=== PATIENT | male | born 1940 | race Caucasian/White ===

== ENCOUNTER 2016-09-02 12:25 | Outpatient (RCR) | payer MEDICARE, OTHER ==
[~2016-09-02 12:25] MED LIST: ACCUPRIL10 MG PO; ACCUPRIL20 MG PO; ACCUPRIL20TAB PO; ASPIRIN E.C. 8181 MG PO; ATENOLOL50 MG PO; BETAPACE 80MG80 MG PO; CO Q-1010 M1 PO; COUMADIN; COUMADIN 22.5 MG/TAB PO; FIBER CHOICE1 CTB PO; HCTZ 25MG25 MG PO; HUMALOG100 U/ML SC; IMDUR 30MG30 MG/TAB PO; LANTUS100 U/ML SQ; LASIX 20MG TABL20 MG PO; MASON NATURAL2000 IU PO; MOTRIN 200200 MG/TAB PO; MULTIPLE VITAMI1 TAB PO; MVI; NEURONTIN100 MG/CAP PO; NITROSTAT0.4 MG/TAB SL; NORCO 325 MG-101 TAB PO; NORCO 325 MG-51 TAB PO; OPTIVE EYE OP; PRAVACHOL 40MG40 MG PO; PRAVACHOL80 MG PO; PRILOSEC 20MG20 MG PO; SUSTANE EYE DROPS OP; SYSTANE LUBRICAN5 ML OP; TOPROL XL 50MG50 MG PO; TYLENOL 325MG325 MG PO; VICODIN 5/5001 UDTAB PO; VITAMIN D1000 IU PO; XARELTO20 MG PO
== END 2016-12-01 | disposition home or self-care (01) ==
LOC: WSST
DX: G20 Parkinson's disease (principal)
CPT/HCPCS: G8996-GN; G8997-GN

== ENCOUNTER → 2016-10-08 | Outpatient (CLI) | payer MEDICARE, OTHER | LOC: COL.RAD 09:23 | DX: R13.13 Dysphagia, pharyngeal phase (principal) | CPT/HCPCS: G8996-GN; G8997-GN; G8998-GN ==

== ENCOUNTER → 2017-02-12 | Outpatient (RCR) | payer MEDICARE, OTHER | END | disposition still patient (30) | LOC: WSPT | DX: M75.01 Adhesive capsulitis of right shoulder (principal); M54.5 Low back pain; G89.29 Other chronic pain | CPT/HCPCS: G8978-GP; G8979-GP ==

== ENCOUNTER 2017-05-14 10:00 | Outpatient (RCR) | payer MEDICARE, OTHER | END 2017-05-15 16:43 | LOC: WSPT 10:00 | DX: M75.01 Adhesive capsulitis of right shoulder (principal); G89.29 Other chronic pain | CPT/HCPCS: G8978-GP; G8979-GP; G8980-GP ==

== ENCOUNTER 2017-12-11 08:00 | Outpatient (RCR) | payer MEDICARE, OTHER | END 2018-01-04 09:53 | disposition home or self-care (01) | LOC: WSPT 08:00 | DX: M54.5 Low back pain (principal); M25.561 Pain in right knee; M25.562 Pain in left knee; Z90.49 Acquired absence of other specified parts of digestive tract; Z96.651 Presence of right artificial knee joint; Z95.0 Presence of cardiac pacemaker; Z98.890 Other specified postprocedural states; Z91.81 History of falling | CPT/HCPCS: G8978-GP; G8979-GP; G8980-GP ==

== ENCOUNTER 2019-07-27 12:47 | Observation (INO) | payer MEDICARE, OTHER ==
[2019-07-27] VITALS (31 sets, daily range): BP systolic 103–147; BP diastolic 52–73; PULSE 71–74; TEMP 98.6; O2SAT 91–98
[~2019-07-27] VITALS: Ht 160 cm; Wt 91.0 kg
[2019-07-27 13:10] LABS: BASO % 0.1 % (0.0-2.0); GRAN # 8.9 (1.4-6.5); GRAN % 88.2 % (42.2-75.2); HEMATOCRIT 38.9 % (42.0-52.0); HEMOGLOBIN 12.7 g/dl (13.5-18.0); LYMPH # 0.7 (1.2-3.4); LYMPH % 6.5 % (20.0-51.0); MEAN CELL VOLUME 96 fl (80.0-100.0); MEAN CORPUSCULAR HEMOGLOBIN 31 pg (27.0-31.0); MEAN CORPUSCULAR HGB CONC 33 g/dl (33.0-37.0); MEAN PLATELET VOLUME 9.8 fl (7.4-10.4); MONO # 0.5 (0.1-0.6); MONO % 4.7 % (1.7-9.3); PLATELET COUNT 258 K/mm3 (130-400); RED BLOOD COUNT 4.07 M/mm3 (4.20-5.60)
[2019-07-27 13:15] LABS: INR 3.3 (0.8-3.0); PROTHROMBIN TIME 39.6 SECONDS (9.7-12.8)
[2019-07-27 13:17] LABS: PARTIAL THROMBOPLASTIN TIME 38.2 SECONDS (26.0-37.0)
[2019-07-27 13:21] LABS: ALANINE AMINOTRANSFERASE 15 U/L (21-72); ALBUMIN 3.9 gm/dL (3.5-5.0); ALKALINE PHOSPHATASE 56 U/L (50-136); ANION GAP 13 mmol/L (7-16); AST,SGOT 22 U/L (15-37); BILIRUBIN,TOTAL 0.7 mg/dL (0.0-1.0); BLOOD UREA NITROGEN 47 mg/dL (9-20); CALCIUM 8.9 mg/dL (8.4-10.2); CARBON DIOXIDE 21 mmol/L (22-30); CHLORIDE 104 mmol/L (98-107); LIPASE 30 U/L (23-300); POTASSIUM 5.5 mmol/L (3.4-5.0); SODIUM 137 mmol/L (137-145); TOTAL PROTEIN 6.7 gm/dL (6.4-8.2)
[2019-07-27 13:30] LABS: GLUCOSE 451 mg/dL (74-106)
[2019-07-27 13:32] LABS: TROPONIN-I < 0.012 ng/mL (0.000-0.035)
[2019-07-27 13:59] LABS: COLLECTION METHOD CATHETER
[2019-07-27 14:22] LABS: ARTERIAL BLD GAS O2 SATURATION 94.5 % (92-100); ARTERIAL BLD GAS TCO2 CT 19.2; ARTERIAL BLOOD GAS BASE EXCESS -4.6 (-2-2); ARTERIAL BLOOD GAS HCO3 18.3 meq/L (22-26); ARTERIAL BLOOD GAS PCO2 28.3 mmHg (35-45); ARTERIAL BLOOD GAS PO2 71.6 mmHg (80-100); ARTERIAL BLOOD GAS pH 7.43 (7.35-7.45)
[2019-07-27 14:29] LABS: HYALINE CAST >12 /lpf; MUCOUS Present /lpf; PH 5 (5-8); SQUAMOUS EPITHELIAL None Seen /hpf; URINE APPEARANCE Clear; URINE BACTERIA None Seen /hpf; URINE BILIRUBIN Negative (NEGATIVE); URINE BLOOD Negative (NEGATIVE); URINE COLOR Yellow; URINE GLUCOSE 1+ (NEGATIVE); URINE KETONE Negative (NEGATIVE); URINE LEUKOCYTE ESTERASE Negative (NEGATIVE); URINE NITRATE Negative (NEGATIVE); URINE PROTEIN(semi-quant) Negative (NEGATIVE); URINE RBC 0-2 /hpf; URINE UROBILINOGEN Negative (NEGATIVE)
[2019-07-27] MEDS ORDERED: NORVASC 5MG5 MG/TAB PO (14:30)
[2019-07-27] MEDS ORDERED: NOVOLIN 70100 UNIT/2 (14:32)
[2019-07-27] MEDS ORDERED: SYSTANE 0.4%-0.1 SOL (14:33)
--- NOTE | 2019-07-27 17:18 | NUR ---
REPORT GIVEN TO ANTHONY PEREA ON MEDICAL FLOOR, PATIENT WILL GO TO ROOM 312
[2019-07-27] MEDS ORDERED: LASIX 20MG TABL20 MG PO (20:10)
--- NOTE | 2019-07-27 20:16 | NUR ---
1800: Pt up to room 312 by WC escorted by ANTHONY Navas. Pt assisted to bed. 5 page, allergies, pharmacy, med rec completed. at bedside. Pt A&O, intermittent anger and joking around, not sure of baseline. LS cta, heart RRR, pacer, BS x4, pulses strong bilaterally. Pt denies SOB, chest pain, dizziness, N/V/D. Pt states he has chronic back and neck pain. 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 Pt uses walker at home. 20g RFA IV flushes w/o complication. 184: MRI called for pt to be brought down for procedure. Pt assisted to WC, slightly unsteady on feet, unable to fully stand up, 1-2 assist. Pt has small stage 2 ulcer on left buttock, will cover w/ mepalex this evening. Pt escorted down for procedure. This nurse stayed w/ patient during procedure. Pt tolerated well. Intermittent anger, needing occasional redirection in process of procedure. 1944: Returned from MRI. Pt assisted to bed. Repositioned, pt eating dinner.
--- NOTE | 2019-07-27 20:40 | NUR ---
Resting in bed. Assessment complete. Lungs clear. Heart sounds normal. Bowels active x4. Pulses strong throughout. Bilateral lower leg edema +1. Rating pain in lower back 8/10. Provided with PRN norco as ordered. Stage 2 pressure ulcer to coccyx-mepalex applied. Left elbow bruise present. Denies other needs at this time. Call light in reach. Will monitor.
--- NOTE | 2019-07-27 23:40 | NUR ---
Resting in bed. Denies needs. Call light in reach.
--- NOTE | 2019-07-28 | NUR ---
Dr. Campuzano added orders for patient to be placed on an insulin drip due to blood sugar 306. Patient was given 10 units sliding scale earlier in evening. Blood sugar recheck 202. Dr. Campuzano informed patient would have to be transferred to ICU for insulin drip. Orders cancelled at this time.
[2019-07-28 03:12] VITALS: BP 120/51; PULSE 76
--- NOTE | 2019-07-28 04:46 | NUR ---
Patient scrotum red and sore per patient report. Applied barrier cream at this time. Patient reports relief. Denies other needs at this time. Call light in reach.
--- NOTE | 2019-07-28 06:16 | NUR ---
Patient had uneventful night. Intermittent confusion, increased alertness this AM. Denies needs. Used urinal throughout night. Call light in reach.
[2019-07-28 06:25] LABS: BASO % 0.1 % (0.0-2.0); GRAN # 12.4 (1.4-6.5); GRAN % 87.5 % (42.2-75.2); HEMATOCRIT 38.7 % (42.0-52.0); HEMOGLOBIN 12.8 g/dl (13.5-18.0); LYMPH # 0.9 (1.2-3.4); LYMPH % 6.6 % (20.0-51.0); MEAN CELL VOLUME 95 fl (80.0-100.0); MEAN CORPUSCULAR HEMOGLOBIN 31 pg (27.0-31.0); MEAN CORPUSCULAR HGB CONC 33 g/dl (33.0-37.0); MEAN PLATELET VOLUME 10.2 fl (7.4-10.4); MONO # 0.8 (0.1-0.6); MONO % 5.5 % (1.7-9.3); PLATELET COUNT 265 K/mm3 (130-400); RED BLOOD COUNT 4.07 M/mm3 (4.20-5.60)
[2019-07-28 06:32] LABS: INR 3.6 (0.8-3.0); PROTHROMBIN TIME 44.1 SECONDS (9.7-12.8)
[2019-07-28 06:33] LABS: BILIRUBIN,TOTAL 0.7 mg/dL (0.0-1.0); CALCIUM 9.3 mg/dL (8.4-10.2); CHOLESTEROL RISK RATIO 3.8; CREATININE, serum 1.51 (0.66-1.25)
--- NOTE | 2019-07-28 07:12 | NUR ---
Report given to ANTHONY Dennison
--- NOTE | 2019-07-28 09:28 | NUR ---
Initial visit; Apartment Locator spoke with Jonathon's who said their Ground Surveillance Systems Operator and friends have been offering support and that she would tell Jonathon that [employer] Apartment Locator has offered support and to keep Jonathon in her prayers.
[2019-07-28 10:00] VITALS: BP 146/66; PULSE 78; TEMP 97.1
[2019-07-28] MEDS ORDERED: JANTOVEN5 MG PO (10:20)
--- NOTE | 2019-07-28 10:25 | NUR ---
Received report, patient was resting in bed with eyes closed. When going to see patient to bring medications, patient and had several questions regarding medications I was administereing. Did go tell patient what I was administering and he felt that he took more pills than that. 2 of the medications were administered by overnight cashier. Some weren't continued by provider. Spoke with pharmacy and patient regarding this and suggested that patient keep med list out to ask provider about meds. Did explain formulary substituions to patient and , they verbalized understanding. Call light and personal items are within reach.
--- NOTE | 2019-07-28 12:50 | NUR ---
Buyer Agent attended clinical rounds with the team. SW then followed up with patient who will discharge today. Patient lives in [place] with his , Onelia. Patient sees Dr. Cornejo for primary care and obtains medications from [facility]. Patient uses a walker for mobility. Patient states he has DPOA-HC which designates Onelia. Patient will return home upon discharge.
--- NOTE | 2019-07-28 16:00 | NUR ---
Pt IV site D/Zeb, tip intact.
--- NOTE | 2019-07-28 18:49 | NUR ---
Patient discharged home with . Instructions reviewed. Personal belongings sent with patient, assisted to private vehicle via wheelchair accompanied by via [facility] staff.
== END 2019-07-28 16:55 | disposition home or self-care (01) ==
LOC: COL.ER 12:47 → ICU 16:01 → MEDICAL 18:13
PROVIDERS: Emergency Medicine; ADMIT Student in an Organized Health Care Education/Training Program
DX: E11.65 Type 2 diabetes mellitus with hyperglycemia (principal); I48.0 Paroxysmal atrial fibrillation; I25.10 Atherosclerotic heart disease of native coronary artery without angina pectoris; I10 Essential (primary) hypertension; E78.5 Hyperlipidemia, unspecified; G47.33 Obstructive sleep apnea (adult) (pediatric); D72.829 Elevated white blood cell count, unspecified; Z79.01 Long term (current) use of anticoagulants; Z95.0 Presence of cardiac pacemaker; Z79.4 Long term (current) use of insulin; Z90.49 Acquired absence of other specified parts of digestive tract; Z96.651 Presence of right artificial knee joint; Z91.040 Latex allergy status; Z91.048 Other nonmedicinal substance allergy status
CPT/HCPCS: G0378; G0379; J1815; J7030

== ENCOUNTER 2019-12-22 07:54 | Day surgery (SDC) | payer MEDICARE, OTHER ==
[2006-08-20 18:39] VITALS: BP 147/69
[2019-12-22] VITALS (8 sets, daily range): BP systolic 118–147; BP diastolic 58–84; PULSE 61–69; TEMP 98.5
[~2019-12-22] VITALS: Ht 160.1 cm; Wt 95.0 kg
[~2019-12-22 07:54] MED LIST changes: -FIBER CHOICE1 CTB PO; +FIBER0.52 GM PO; +JANTOVEN5 MG PO; +NORVASC 5MG5 MG/TAB PO; +NOVOLIN 70100 UNIT/2; +SYSTANE 0.4%-0.1 SOL OP
[2019-12-22] MEDS ORDERED: ARICEPT10 MG PO (08:31)
[2019-12-22 08:52] LABS: HEMATOCRIT 41.9 % (42.0-52.0); HEMOGLOBIN 13.4 g/dl (13.5-18.0); MEAN CELL VOLUME 96 fl (80.0-100.0); MEAN CORPUSCULAR HEMOGLOBIN 31 pg (27.0-31.0); MEAN CORPUSCULAR HGB CONC 32 g/dl (33.0-37.0); MEAN PLATELET VOLUME 10.6 fl (7.4-10.4); PLATELET COUNT 248 K/mm3 (130-400); RED BLOOD COUNT 4.37 M/mm3 (4.20-5.60); REDCELL DISTRIBUTION WIDTH-CV 14.6 % (11.5-14.5)
[2019-12-22 08:55] LABS: CREATININE, serum 1.17 (0.66-1.25); POTASSIUM 4.6 mmol/L (3.4-5.0)
[2019-12-22 08:59] LABS: INR 1.5 (0.8-3.0)
--- NOTE | 2019-12-22 09:46 | NUR ---
SEE MERGE FOR MEDICATION ADMINISTRATION TIMES AND INTRA AND POST SEDATION ASSESSMENTS.
--- NOTE | 2019-12-22 11:00 | NUR ---
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 Awake and alert. call light in reach. HOB elvated for comfort. dressing to upper left chest clean and dry. No c/o, takes juice and muffin
[2019-12-22] MEDS ORDERED: CEPHALEXIN500 M1 PO (11:06)
--- NOTE | 2019-12-22 11:15 | NUR ---
pt sits on side of bed to be able to use urinal, voided 150cc yellow urine.
--- NOTE | 2019-12-22 12:15 | NUR ---
pt con't same, talked with on phone earlier, rests with eyes closed
--- NOTE | 2019-12-22 13:00 | NUR ---
reviewed discharge inst. with pt on new RX to be picked up today. Also on wound/dressing care. followup appt made also with verbal understanding. int dc'd intact. pt up and dresses self, up in w/c, dressing remains the same, discharged at 1325 via w/c to car with staff with
== END 2019-12-22 13:30 | disposition home or self-care (01) ==
LOC: COL.CAR 07:54
PROVIDERS: Internal Medicine Cardiovascular Disease
DX: Z45.010 Encounter for checking and testing of cardiac pacemaker pulse generator [battery] (principal); I48.0 Paroxysmal atrial fibrillation; I12.9 Hypertensive chronic kidney disease with stage 1 through stage 4 chronic kidney disease, or unspecified chronic kidney disease; N18.9 Chronic kidney disease, unspecified; Z86.718 Personal history of other venous thrombosis and embolism; Z86.711 Personal history of pulmonary embolism; E78.5 Hyperlipidemia, unspecified; Z86.73 Personal history of transient ischemic attack (TIA), and cerebral infarction without residual deficits; Z88.1 Allergy status to other antibiotic agents; Z88.2 Allergy status to sulfonamides; I25.10 Atherosclerotic heart disease of native coronary artery without angina pectoris; J45.909 Unspecified asthma, uncomplicated
CPT/HCPCS: J0690; J2250; J3010; J7040

== ENCOUNTER → 2020-03-07 | Outpatient (CLI) | payer MEDICARE, OTHER ==
[~2020-03-07] MED LIST changes: +ARICEPT10 MG PO; +CEPHALEXIN500 M1 PO
== END ==
LOC: COL.RAD 08:42
DX: Z01.812 Encounter for preprocedural laboratory examination (principal); M43.12 Spondylolisthesis, cervical region; M48.02 Spinal stenosis, cervical region; M50.31 Other cervical disc degeneration, high cervical region; G20 Parkinson's disease; G24.9 Dystonia, unspecified
CPT/HCPCS: A9585

== ENCOUNTER 2020-04-03 13:00 | Outpatient (RCR) | payer MEDICARE, OTHER | END 2020-06-13 | disposition home or self-care (01) | LOC: WSST | DX: G24.9 Dystonia, unspecified (principal); M54.2 Cervicalgia; G20 Parkinson's disease ==

== ENCOUNTER → 2020-04-19 | Outpatient (CLI) | payer MEDICARE, OTHER | LOC: COL.RAD 12:07 | DX: G20 Parkinson's disease (principal); M54.2 Cervicalgia; R13.10 Dysphagia, unspecified ==

== ENCOUNTER 2020-09-28 13:41 | Observation (INO) | payer MEDICARE, OTHER ==
[~2020-09-28] VITALS: Ht 160 cm; Wt 73.0 kg
[~2020-09-28 13:41] MED LIST changes: +AMOXICILLIN 8751 TAB PO; +DOXYCYCLINE 10100 MG PO; +NOVOLOG 100U100 U/M1 SQ; +SYMMETREL100 MG PO
[2020-09-28 14:13] LABS: BASO # 0.1 (0.0-0.2); BASO % 0.6 % (0.0-2.0); EOS # 0.4 (0.0-0.7); EOS % 3.8 % (0-4.0); GRAN # 5.7 (1.4-6.5); GRAN % 61.3 % (42.2-75.2); HEMATOCRIT 42.5 % (42.0-52.0); HEMOGLOBIN 13.5 g/dl (13.5-18.0); LYMPH % 21.9 % (20.0-51.0); MEAN CELL VOLUME 98 fl (80.0-100.0); MEAN CORPUSCULAR HEMOGLOBIN 31 pg (27.0-31.0); MEAN CORPUSCULAR HGB CONC 32 g/dl (33.0-37.0); MEAN PLATELET VOLUME 10.1 fl (7.4-10.4); MONO # 1.1 (0.1-0.6); MONO % 12.1 % (1.7-9.3); PLATELET COUNT 238 K/mm3 (130-400); RED BLOOD COUNT 4.34 M/mm3 (4.20-5.60); REDCELL DISTRIBUTION WIDTH-CV 14.6 % (11.5-14.5)
[2020-09-28 14:20] LABS: INR 3.6 (0.8-3.0); PROTHROMBIN TIME 41.1 SECONDS (9.7-12.8)
[2020-09-28 14:21] LABS: ALANINE AMINOTRANSFERASE 5 U/L (4-49); ALBUMIN 3.9 gm/dL (3.5-5.0); ALKALINE PHOSPHATASE 68 U/L (50-136); ANION GAP 8 mmol/L (7-16); AST,SGOT 24 U/L (15-37); BILIRUBIN,TOTAL 1.2 mg/dL (0.0-1.0); BLOOD UREA NITROGEN 30 mg/dL (9-20); CALCIUM 9.7 mg/dL (8.4-10.2); CARBON DIOXIDE 30 mmol/L (22-30); CHLORIDE 102 mmol/L (98-107); CREATININE, serum 1.44 (0.66-1.25); GLUCOSE 148 mg/dL (74-106); POTASSIUM 4.8 mmol/L (3.4-5.0); SODIUM 141 mmol/L (137-145); TOTAL PROTEIN 7.2 gm/dL (6.4-8.2)
[2020-09-28 14:35] LABS: TROPONIN-I < 0.012 ng/mL (0.000-0.035)
[2020-09-28 15:06] LABS: COLLECTION METHOD CATHETER
[2020-09-28 15:13] LABS: MUCOUS Present /lpf; PH 5 (5-8); SQUAMOUS EPITHELIAL 0-2 /hpf; URINE APPEARANCE Clear; URINE BACTERIA None Seen /hpf; URINE BILIRUBIN Negative (NEGATIVE); URINE BLOOD Negative (NEGATIVE); URINE COLOR Yellow; URINE GLUCOSE Negative (NEGATIVE); URINE KETONE Negative (NEGATIVE); URINE LEUKOCYTE ESTERASE Negative (NEGATIVE); URINE NITRATE Negative (NEGATIVE); URINE PROTEIN(semi-quant) Negative (NEGATIVE); URINE RBC 0-2 /hpf; URINE UROBILINOGEN Negative (NEGATIVE); URINE WBC 0-2 /hpf
[2020-09-28] MEDS ORDERED: LASIX 20MG TABL20 MG PO (16:13)
[2020-09-28] MEDS ORDERED: PARCOPA 25/101 UDTAB PO (16:15)
--- NOTE | 2020-09-28 16:43 | NUR ---
Senior Technologist received a call from ED that patient presented with multiple falls at home. Per ANTHONY Allen patient's expressed patient has been having hallucinations and she does not feel she can safely take patient home. Lisa advised patient has [facility] the past. JAGUAR contacted [facility] and faxed referral. [facility] followed up with JAGUAR and advised they cannot take today, however she reviewed with her team and Dr. Vincent and they could likely take tomorrow with a negative PCR. JAGUAR provided this information to ANTHONY Allen.
[2020-09-28 18:28] VITALS: BP 134/54; PULSE 60; TEMP 97.7
--- NOTE | 2020-09-28 20:00 | NUR ---
PT HAVING HALLUCINATIONS, THINKS THERE ARE OTHER PEOPLE IN THE ROOM AND ASKED THEM TO LEAVE. REORIENTED AT THIS TIME. ASSISTED TO STANDING AT BEDSIDE WITH 2 ASSIST TO VOID. BACK TO BED AFTER. IS ALERT, ORIENTED X3. HAS SL TO LEFT FOREARM WITHOUT REDNESS OR SWELLING. NOTED NUMEROUS BRUISES TO BACK AND LEGS, ARM FROM FALLS AT HOME. WEARS DEPENDS FOR OCCASIONAL INCONTINENCE. REPORTS CHRONIC BACK PAIN AND HAS KYPHOSIS WITH DISTORTED NECK. 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 BILATERAL LOWER LEG EDEMA NOTED.
--- NOTE | 2020-09-28 21:58 | NUR ---
Meredith given for back pain.
[2020-09-28 23:26] VITALS: BP 119/60; PULSE 59; TEMP 97.5
--- NOTE | 2020-09-28 23:50 | NUR ---
Pt assisted to standing at bedside to void. Back to bed and ready for sleep at this time.
[2020-09-29 03:38] VITALS: BP 141/67; PULSE 62; TEMP 97.8
--- NOTE | 2020-09-29 04:50 | NUR ---
Notified subwarehouse supervisor of patient's positive Covid PCR. New room assignment 307.
--- NOTE | 2020-09-29 05:00 | NUR ---
Report to Saloni CRUZ.
--- NOTE | 2020-09-29 05:20 | NUR ---
TRANSFERRED TO ROOM 307 PER BED. BELONGINGS SENT WITH PATIENT.
--- NOTE | 2020-09-29 05:41 | NUR ---
Patient transferred to room 307 via bed from surgical unit at 05:20 am. Patient A/O x3. IV fluid running at 75ml/hr to left forearm IV site. Patient c/o back pain and neck pain 03/16. PRN [place] given at 05:29 am. Warm blanket offered to the patient. Call light within reach and encouraged patient to use call light if he needs anything. Patient verbalized understanding. Bed alarms on. Fall precaution maintained. Will give report to day shift nurse.
--- NOTE | 2020-09-29 06:28 | NUR ---
BS 66 at 06:20 am. Offered 4 oz of juice. Will recheck BS in 15-30 min.
[2020-09-29 07:28] LABS: HEMATOCRIT 41.7 % (42.0-52.0); HEMOGLOBIN 13.6 g/dl (13.5-18.0); INR 3.1 (0.8-3.0); MEAN CELL VOLUME 97 fl (80.0-100.0); MEAN CORPUSCULAR HEMOGLOBIN 32 pg (27.0-31.0); MEAN CORPUSCULAR HGB CONC 33 g/dl (33.0-37.0); MEAN PLATELET VOLUME 9.8 fl (7.4-10.4); PLATELET COUNT 207 K/mm3 (130-400); PROTHROMBIN TIME 35.3 SECONDS (9.7-12.8); RED BLOOD COUNT 4.31 M/mm3 (4.20-5.60); REDCELL DISTRIBUTION WIDTH-CV 14.5 % (11.5-14.5)
[2020-09-29 07:31] LABS: CALCIUM 9.2 mg/dL (8.4-10.2); CREATININE, serum 1.08 (0.66-1.25); POTASSIUM 4.1 mmol/L (3.4-5.0)
[2020-09-29 07:40] VITALS: BP 145/63; PULSE 64; TEMP 97.5
--- NOTE | 2020-09-29 08:15 | NUR ---
Shift assessment complete. Pt lying in bed upon entry. A&Ox4 at this time. Heart RRR, lungs CTA. Generalized bruising noted with mild edema to BLE. BS 76 after 4 oz of juice. Pt given another 4 oz and BS rechecked after an hour per verbal order from Dr. Gerber. BS 83 upon recheck, verbalizes no further treatment necessary at this time. Remains on RA at this time. Fluids running at 75 ml/hr. Reports severe generalized chronic pain, partially relieved by [place]. Tylenol administered at this time. Pt's updated via phone call per pt's request. No further needs at this time.
--- NOTE | 2020-09-29 10:14 | NUR ---
Warfarin Initial Dosing Pharmacy Note Ordering Provider: Hugo Benitez MD Indication: Atrial fibrillation LABS: INR 3.1, DOWN FROM 3.6 Recommendation: RESUME 09/29, 2MG QHS (20% REDUCTION), WILL CONTINUE TO MONITOR Home Regimen: WARFARIN 2.5 MG QHS
[2020-09-29 12:08] VITALS: BP 124/60; PULSE 65; TEMP 97.5
--- NOTE | 2020-09-29 13:02 | NUR ---
Plan on SNF. SW spoke with Onelia via about patient care. reports that resides with her however it is increasingly harder for to support patient in home due to being weaker. Patient tested positive for covid and is unable to go to planned SNF at [facility], [facility] declined. SW sent [facility]errals to [facility]. Educated on placement although she does not agree with patient not going back to [facility]. Patient PCP is Dr. Willi Cornejo and RX obtained through [facility]. Patient needs shower bench due to unable to stand for long periods of time. Patient is reported to have a pacemaker. Will continue to follow for care.
--- NOTE | 2020-09-29 14:19 | NUR ---
[facility] is following. May be able to accept
[2020-09-29 16:35] VITALS: BP 148/43; PULSE 83; TEMP 98.1
--- NOTE | 2020-09-29 17:58 | NUR ---
Pt remains oriented. Has had a few minor hallucinations throughout day but is easily reoriented. Hallucinations have been things such as thinking he sees his phone sitting on the table when it's not there or thinking the box of wipes was a giant box of jonny crackers. Pt quickly realizes that he's hallucinating and usually corrects himself. Remains on room air. Continuing to monitor.
[2020-09-29 20:01] VITALS: BP 139/56; PULSE 60; TEMP 98.8
[2020-09-29 23:28] VITALS: BP 138/62; PULSE 63; TEMP 98.1
[2020-09-30] VITALS (7 sets, daily range): BP systolic 124–147; BP diastolic 54–76; PULSE 59–64; TEMP 97.7–98.4
--- NOTE | 2020-09-30 07:48 | NUR ---
Pt heard screaming "Help me, help me!" This RN found pt lying in bed and yelling "My foot is going to burst." Upon examination, bilteral feet w/o S/S complication and pt calmed down after assessing feet. Stated he needed to use restroom. Pt up at bedside 1 assist to use urinal. Had to take two breaks from standing due to LE weakness. Back in bed at this time, calm and w/o complaint.
[2020-09-30 07:56] LABS: BASO % 0.4 % (0.0-2.0); EOS # 0.5 (0.0-0.7); EOS % 4.9 % (0-4.0); GRAN % 67.2 % (42.2-75.2); HEMOGLOBIN 12.5 g/dl (13.5-18.0); LYMPH # 1.6 (1.2-3.4); MEAN CELL VOLUME 97 fl (80.0-100.0); MEAN CORPUSCULAR HEMOGLOBIN 31 pg (27.0-31.0); MEAN CORPUSCULAR HGB CONC 32 g/dl (33.0-37.0); MEAN PLATELET VOLUME 10.4 fl (7.4-10.4); MONO # 1.3 (0.1-0.6); MONO % 12.3 % (1.7-9.3); PLATELET COUNT 228 K/mm3 (130-400); RED BLOOD COUNT 4.02 M/mm3 (4.20-5.60); REDCELL DISTRIBUTION WIDTH-CV 14.6 % (11.5-14.5)
[2020-09-30 08:06] LABS: CALCIUM 9.2 mg/dL (8.4-10.2); CREATININE, serum 0.95 (0.66-1.25); POTASSIUM 3.7 mmol/L (3.4-5.0)
[2020-09-30 08:07] LABS: INR 2.8 (0.8-3.0); PROTHROMBIN TIME 31.5 SECONDS (9.7-12.8)
--- NOTE | 2020-09-30 09:00 | NUR ---
Shift assessment complete. Pt alert and oriented x4. Does continue to have occasional hallucinations but has remained calm since shouting episode earlier this AM. Pain to heels, heels elevated. Bed bath and full bed change performed. On RA, lungs CTA, heart RRR. Scattered bruising and skin tears across arms and legs with large bruises over left hip and center of back. Redness in skin folds of groin and over entire bottom. Informed and lotrimin powder ordered. Denies further needs at this time. Call light in reach.
--- NOTE | 2020-09-30 10:39 | NUR ---
JAGUAR faxed record updates to [facility] for SNF.
--- NOTE | 2020-09-30 12:43 | NUR ---
SW was called by hospitalist to enquire if patient could DC to facility today. [facility] staff Shu stated that she will have to review documenation on Thursday in order to make a decision in regards to accepting patient. JAGUAR will continue to follow up with [facility] staff to assist with potential transfer.
--- NOTE | 2020-09-30 17:31 | NUR ---
Pt hallucinating at shift change this AM but easily reoriented. No hallucinations noted today until 1700 when pt looked at the recliner and began talking. When asked what he was saying he stated "I'm not talking to you, I'm talking to my father in law." Continued to speak towards recliner for several minutes and was unable to be reoriented. At this time, pt visualized on monitor eating dinner and does occasionally begin talking though no one is currently in the room. Intermittent complaints of pain to heels, relieved with [place] and elevation.
[2020-10-01] VITALS (8 sets, daily range): BP systolic 134–152; BP diastolic 61–67; PULSE 60–66; TEMP 97.2–97.9
[2020-10-01 06:24] LABS: INR 2.6 (0.8-3.0); PROTHROMBIN TIME 29.1 SECONDS (9.7-12.8)
--- NOTE | 2020-10-01 09:00 | NUR ---
Shift assessment complete. Pt sitting up in bed eating breakfast upon entry. Alert and partially oriented. Oriented to person and place but disoriented to time and situation. Continues to have hallucinations that father in law is in room. Personal neck brace on. Heart RRR, lungs CTA. Denies pain. INT to right forearm with mild edema and redness to site. IV removed. Continuing to monitor.
--- NOTE | 2020-10-01 12:01 | NUR ---
JAGUAR contacted and gave a referral to Shena at [facility].
--- NOTE | 2020-10-01 15:33 | NUR ---
The patient is observation status. Dago, at [facility], reports that they would not be able to waive the inpatient three midnight rule and the patient's family would have to private pay. Monty, at [facility], reports that they might be able to waive the rule, but that they have to check with [facility] on when they would safely be able to take the patient, due to him testing positive on 09/28. JAGUAR contacted and updated the patient's , Onelia. Onelia reports that she would not be able to afford to private pay. She was agreeable for JAGUAR to send referrals to [facility] and [facility]. JAGUAR consulted [place], with [facility]. JAGUAR faxed a referral to [facility] at [facility].
--- NOTE | 2020-10-01 16:30 | NUR ---
Pt titrated down, currently on room air with sats 98-99%. Denies SOA.
--- NOTE | 2020-10-01 19:12 | NUR ---
Received report from Rose Marie. Seen patient awake, talking to himself during shift change. He was pointing to an open space and as if he was having conversation with someone else. Bed alarm on.
--- NOTE | 2020-10-01 20:55 | NUR ---
Assesment done. Patient on room air. No IV access. He still continues to talk to himself. He would dangle his legs on the bed. Repositioned patient and changed his diaper. He was able to take his pills okay. He denies pain.
[2020-10-02] VITALS (7 sets, daily range): BP systolic 109–165; BP diastolic 49–82; PULSE 57–64; TEMP 97.6–97.9
--- NOTE | 2020-10-02 06:22 | NUR ---
Patient still having hallucinations and talking to himself. Changed his diaper and bed sheets this morning. He denies pain. Blood glucose at 91mg/dl. Bed alarm on.
--- NOTE | 2020-10-02 07:38 | NUR ---
Lying in bed with eyes open. Alert to self and year, confused on where he is at. Reorient patient. Patient refuses to allow lab to draw blood and this nurse tries to get patient to let lab draw blood and patient continues to refuse. Patient hallucinating and talking to people not in room. Denies pain. Bruising noted to bilat upper arms. Redness noted to bottom and groin area. Brief changed at this time, incontinent of urine. Denies additional needs.
--- NOTE | 2020-10-02 10:10 | NUR ---
PT in room working with the patient. Patient gets back in bed at this time. Brief changed and pericare provided. Patient denies additional needs at this time.
--- NOTE | 2020-10-02 11:21 | NUR ---
Lying in bed in supine position with eyes open. Oriented to self and year, confused on location. Rating pain all over body 04/16, patient says that this is a chronic issue for him and he takes hydrocodone at home for it. Will administer pain medication at this time as prescribed. Patient denies additional needs.
--- NOTE | 2020-10-02 12:23 | NUR ---
Patient ambulates to door to room and back to bed with assist of two and use of walker. Assisted to comfortable position. Pericare provided, brief changed. Patient denies additional needs.
--- NOTE | 2020-10-02 13:32 | NUR ---
Assisted patient into upright position in bed. Discuss with the patient going to [facility] some time today. Patient verbalizes understanding. Patient continues to have conversations with people who are not in room. Patient says that his pain is better. Does have bruising noted to back, patient says that it was from when he fell at home. Denies additional needs at this time.
--- NOTE | 2020-10-02 14:14 | NUR ---
Monty, at [facility], reports that they can accept the patient and waive Medicare's three midnight rule. Monty reports that they cannot take the patient until tomorrow though. JAGUAR notified the hospitalist and the patient's RN. JAGUAR contacted and updated the patient's , Onelia. Onelia is in agreement with the patient going to [facility] upon discharge.
--- NOTE | 2020-10-02 14:20 | NUR ---
Patient lying in bed, finished lunch. Patient incontinent of urine, bang care provided and new brief applied. Patient informed that [facility] was not able to accept him today but they are planning for tomorrow. Patient verbalizes understanding and denies further needs at this time.
--- NOTE | 2020-10-02 16:54 | NUR ---
Lying in bed with eyes open. Alert but continues to remain confused, talking to others not in room. Has pain in miller/neck, pain medication offered but patient declines. Denies additional needs at this time.
--- NOTE | 2020-10-02 19:02 | NUR ---
Received report from Martina. Patient asleep in bed. Bed alarm on.
--- NOTE | 2020-10-02 21:16 | NUR ---
Patient spilled his food tray all over the floor. He still continues to have some hallucinations. Lyla JUAREZ and this nurse cleaned the mess in his room and changed his diapers. Repositioned patient. His blood glucose was 50mg/dl. Gave patient 2 apple juice. Will recheck blood glucose again.
--- NOTE | 2020-10-02 21:41 | NUR ---
Recheck blood glucose, it went up to 65mg/dl. Gave patient 2 more apple juice. Saw Dejah VASQUEZ in the nurses station, informed her about hypoglycemia episode. Levemir not given. Will recheck again.
--- NOTE | 2020-10-02 22:08 | NUR ---
Patient's blood glucose now at 115mg/dl. Patient went back to sleep. No other needs noted.
[2020-10-03 03:24] VITALS: BP 144/68; PULSE 61; TEMP 97.7
--- NOTE | 2020-10-03 06:42 | NUR ---
Patient had been asleep most of the night. His hallucinations were lessen today. He did have a bowel movement this morning. Lyla JUAREZ did a bedbath to the patient and changed his gown and bedsheets.
[2020-10-03 08:00] VITALS: BP 131/51; PULSE 62; TEMP 97.5
[2020-10-03 08:08] LABS: INR 3.6 (0.8-3.0); PROTHROMBIN TIME 41.1 SECONDS (9.7-12.8)
--- NOTE | 2020-10-03 09:00 | NUR ---
Shift assessment complete. Pt sitting up in bed finishing breakfast. Verbally upset due to not receiving all AM meds prior to 0800 and having to ask for tea. Pt told to call when he needs assistance. A&Ox4. Heart RRR. Lungs CTA. Still RA with stable sats. Call light in reach.
--- NOTE | 2020-10-03 10:17 | NUR ---
Monty, at [facility], reports that they are waiting on PCR results on another one of their patients. They cannot take the patient until those results are in and he was told that they might come in until later tonight. JAGUAR followed up with Shena at [facility]. Shena reports that they are full today and cannot take the patient today.
[2020-10-03] MEDS ORDERED: COUMADIN 1MG1 MG/TAB PO (11:45)
[2020-10-03] MEDS ORDERED: DESENEX TP (11:45)
[2020-10-03 12:36] VITALS: BP 111/58; PULSE 62; TEMP 98.2
--- NOTE | 2020-10-03 13:47 | NUR ---
Monty, at [facility], reports that they are able to take the patient today. JAGUAR notified the clinical team. The patient is to discharge today, 10/03, to [facility] for a skilled stay. Transportation was scheduled around [id number], via [facility]. JAGUAR informed the patient's RN and his , Onelia, over the phone. They were both agreeable to the time. No additional needs at this time.
--- NOTE | 2020-10-03 16:15 | NUR ---
Discharge paperwork discussed with pt and sent along with pt belongings. Pt taken down to ED entrance via wheelchair, accompanied by hospital staff. Assisted onto [facility] bus. All belongings with pt. Pt's called and updated via phone.
== END 2020-10-03 16:15 | disposition home or self-care (01) ==
LOC: COL.ER 13:41 → MEDICAL 17:20 → SURG 17:20 → MEDICAL 09-29 05:46
PROVIDERS: Nurse Practitioner Primary Care; Physician Assistant; Student in an Organized Health Care Education/Training Program; ADMIT Hospitalist
DX: U07.1 COVID-19 (principal); R53.1 Weakness; N17.9 Acute kidney failure, unspecified; G20 Parkinson's disease; M81.0 Age-related osteoporosis without current pathological fracture; E11.9 Type 2 diabetes mellitus without complications; I48.0 Paroxysmal atrial fibrillation; Z79.01 Long term (current) use of anticoagulants; I10 Essential (primary) hypertension; E78.5 Hyperlipidemia, unspecified; I25.10 Atherosclerotic heart disease of native coronary artery without angina pectoris; G47.33 Obstructive sleep apnea (adult) (pediatric); Z88.2 Allergy status to sulfonamides; Z91.040 Latex allergy status; Z88.1 Allergy status to other antibiotic agents; Z91.048 Other nonmedicinal substance allergy status; Z79.82 Long term (current) use of aspirin; Z96.651 Presence of right artificial knee joint; Z90.49 Acquired absence of other specified parts of digestive tract; Z79.4 Long term (current) use of insulin
CPT/HCPCS: 99232-AI; G0378; J1815; J7030

== ENCOUNTER 2020-10-14 11:56 | Emergency (ER) | payer MEDICARE, OTHER ==
[2006-08-20 18:39] VITALS: BP 147/69
[~2020-10-14] VITALS: Wt 75.9 kg
[~2020-10-14 11:56] MED LIST changes: +COUMADIN 1MG1 MG/TAB PO; +DESENEX TP; +PARCOPA 25/101 UDTAB PO
[2020-10-14 12:02] VITALS: TEMP 98.4
[2020-10-14 12:38] LABS: BASO # 0.1 (0.0-0.2); BASO % 0.5 % (0.0-2.0); EOS # 0.4 (0.0-0.7); GRAN # 7.5 (1.4-6.5); GRAN % 71.9 % (42.2-75.2); HEMATOCRIT 39.8 % (42.0-52.0); LYMPH # 1.4 (1.2-3.4); LYMPH % 12.9 % (20.0-51.0); MEAN CELL VOLUME 97 fl (80.0-100.0); MEAN CORPUSCULAR HEMOGLOBIN 32 pg (27.0-31.0); MEAN CORPUSCULAR HGB CONC 33 g/dl (33.0-37.0); MEAN PLATELET VOLUME 10.2 fl (7.4-10.4); MONO # 1.1 (0.1-0.6); MONO % 10.3 % (1.7-9.3); PLATELET COUNT 274 K/mm3 (130-400); RED BLOOD COUNT 4.12 M/mm3 (4.20-5.60); REDCELL DISTRIBUTION WIDTH-CV 14.1 % (11.5-14.5)
[2020-10-14 12:42] LABS: INR 1.9 (0.8-3.0); PROTHROMBIN TIME 21.8 SECONDS (9.7-12.8)
[2020-10-14 12:45] LABS: ALANINE AMINOTRANSFERASE 15 U/L (4-49); ALBUMIN 3.5 gm/dL (3.5-5.0); ALKALINE PHOSPHATASE 77 U/L (50-136); ANION GAP 7 mmol/L (7-16); AST,SGOT 25 U/L (15-37); BILIRUBIN,TOTAL 0.8 mg/dL (0.0-1.0); BLOOD UREA NITROGEN 24 mg/dL (9-20); CALCIUM 8.6 mg/dL (8.4-10.2); CARBON DIOXIDE 28 mmol/L (22-30); CHLORIDE 104 mmol/L (98-107); GLUCOSE 244 mg/dL (74-106); PARTIAL THROMBOPLASTIN TIME 30.3 SECONDS (26.0-37.0); POTASSIUM 4.4 mmol/L (3.4-5.0); SODIUM 139 mmol/L (137-145); TOTAL PROTEIN 6.6 gm/dL (6.4-8.2)
[2020-10-14 13:06] LABS: TROPONIN-I < 0.012 ng/mL (0.000-0.035)
[2020-10-14 17:10] VITALS: BP 116/92; PULSE 66
== END 2020-10-14 17:13 ==
LOC: COL.ER 11:56
PROVIDERS: Emergency Medicine
DX: S22.42XA Multiple fractures of ribs, left side, initial encounter for closed fracture (principal); R53.1 Weakness; G20 Parkinson's disease; I48.91 Unspecified atrial fibrillation; Z86.16 Personal history of COVID-19; Z98.890 Other specified postprocedural states; Z88.2 Allergy status to sulfonamides; Z91.040 Latex allergy status; Z88.8 Allergy status to other drugs, medicaments and biological substances; Z95.0 Presence of cardiac pacemaker; Z79.01 Long term (current) use of anticoagulants; Z79.4 Long term (current) use of insulin; Z79.82 Long term (current) use of aspirin; W19.XXXA Unspecified fall, initial encounter
CPT/HCPCS: J7030; Q9967

== ENCOUNTER → 2020-12-27 | Outpatient (CLI) | payer MEDICARE, OTHER | LOC: COL.RAD 16:01 | DX: M85.88 Other specified disorders of bone density and structure, other site (principal); M41.9 Scoliosis, unspecified; Z96.89 Presence of other specified functional implants ==